=== PATIENT | female | born 1990 | race Caucasian/White ===

== ENCOUNTER 2017-05-27 14:30 | Inpatient (IN) | payer BC ==
[2017-05-27] MEDS ORDERED: DEXTROSE 5%-LACTATED RINGERS 1,000 ML IV ONE (14:50)
[2017-05-27] MEDS ORDERED: AMPICILLIN - 100 ML IVPB ONE (16:00)
[2017-05-27 16:21] VITALS: BMI 36.1
[2017-05-27 17:04] LABS: BASOPHIL 0.3 % (0-2.0); EOSINOPHIL 0.5 % (0-4.5); MCH 29.1 pg (25.7-33.7); MCHC 33.3 g/dl (32.0-36.0); MEAN CELL VOLUME 87.2 fl (80-96); MEAN PLT VOLUME 8.4 fl (7.5-11.1); NEUTROPHILS 66.9 % (42.8-82.8); PLATELET COUNT 233 K/MM3 (134-434); RDW 13.2 % (11.6-15.6); WHITE BLOOD COUNT 6.2 K/mm3 (4.0-10.0)
[2017-05-27 17:09] LABS: ANION GAP 7 (8-16); CALCIUM 8.7 mg/dL (8.5-10.1); CO2 26 mmol/L (21-32); CREATININE 0.5 mg/dL (0.55-1.02); GLUCOSE,RANDOM 78 mg/dL (74-106)
[2017-05-27 17:32] LABS: INR 1.05 (0.82-1.09); PROTHROMBIN TIME (PATIENT) 11.6 SEC (9.98-11.88)
[2017-05-27 17:35] LABS: ACTIVATED PTT 28.1 SECONDS (26.9-34.4)
[2017-05-27] MEDS: AMPICILLIN - 100 ML IVPB SCH (20:00)
[2017-05-27] MEDS ORDERED: AMPICILLIN - 100 ML IVPB SCH (22:30)
[2017-05-28] MEDS: OXYTOCIN 15 UNITS/ LR 250 ML 250 ML IVPB SCH (03:40)
[2017-05-28] MEDS: AMPICILLIN - 100 ML IVPB SCH ×5 (04:00→22:20)
[2017-05-28] MEDS: DEXTROSE 5%-LACTATED RINGERS 1,000 ML IV SCH (04:30)
[2017-05-28] MEDS ORDERED: BUTORPHANOL TARTRATE 1 MG/ML VIAL IVPUSH ONE (05:16)
[2017-05-28] MEDS ORDERED: PROMETHAZINE HCL 25 MG/1 ML VIAL IVPUSH ONE (05:16)
[2017-05-28] MEDS ORDERED: OXYTOCIN 15 UNITS/ LR 250 ML 250 ML IVPB SCH (05:30)
[2017-05-28] MEDS: FENTANYL/BUPIVACAINE/NS/PF - PCEA - 50 ML DISP.SYRIN EP SCH (10:15)
[2017-05-28] MEDS ORDERED: WITCH HAZEL 50% (TUCKS) 40 PAD/JAR PAD TP PRN (12:33)
[2017-05-28] MEDS ORDERED: METHYLERGONOVINE MALEATE 0.2 MG/1 ML AMP IM PRN (12:33)
[2017-05-28] MEDS ORDERED: BISACODYL 10 MG SUPP.RECT RC PRN (12:33)
[2017-05-28] MEDS ORDERED: BENZOCAINE 28 GM HEMORRHOIDAL OINTMENT TP PRN (12:33)
[2017-05-28] MEDS ORDERED: oxyCODONE HCL 5 MG TABLET PO PRN (12:33)
[2017-05-28] MEDS ORDERED: BENZOCAINE 20% 57 GM BOTTLE TP PRN (12:33)
--- NOTE | 2017-05-28 12:36 | HP ---
Past Medical History - Primary Care Physician PCP:: Luis E Steele (HP done 05/27/17) - Admission Chief Complaint: 38 weeks PROM History of Present Illness: 27 yo f 38.5 weeks, with srom 215 pm 03/27/17, clear fluid , no contraction , no fever, no bleeding History Source: Patient Limitations to Obtaining History: No Limitations - Past Medical History ...: 2 ...Para: 1 ...Term: 1 ...: 0 ...Spon : 0 ...Induced : 0 ...Multiple Gestation: 0 ...LMP: 08/29/16 ... Weeks Gestation by Dates: 38.5 ...EDC by Dates: 06/05/17 Additional OB History: one , no complication - Past Surgical History Hx Myomectomy: No Hx Transabdominal Cerclage: No - Smoking History Smoking history: Never smoked Have you smoked in the past 12 months: No - Alcohol/Substance Use Hx Alcohol Use: No - Social History Usual Living Arrangement: Yes: With Spouse History of Recent Travel: No Home Medications - Allergies Allergies/Adverse Reactions: Allergies Allergy/AdvReac Type Severity Reaction Status Date / Time No Known Drug Allergies Allergy Verified 05/27/17 15:36 - Home Medications Home Medications: Ambulatory Orders Vit No.130/Iron/FA [ Vitamins] 1 each PO DAILY 05/27/17 Review of Systems - Review of Systems Constitutional: reports: No Symptoms Eyes: reports: No Symptoms HENT: reports: No Symptoms Neck: reports: No Symptoms Cardiovascular: reports: No Symptoms Respiratory: reports: No Symptoms Gastrointestinal: reports: No Symptoms Genitourinary: reports: No Symptoms Breasts: reports: No Symptoms Reported Musculoskeletal: reports: No Symptoms Neurological: reports: No Symptoms Endocrine: reports: No Symptoms Hematology/Lymphatic: reports: No Symptoms Psychiatric: reports: No Symptoms Physical Exam - Maternity Vital Signs: Vital Signs Temperature 97.8 F 05/28/17 10:00 Pulse Rate 69 05/28/17 11:00 Respiratory Rate 18 05/28/17 11:00 Blood Pressure 89/45 05/28/17 11:00 O2 Sat by Pulse Oximetry (%) 100 05/28/17 11:00 Constitutional: Yes: Well Nourished, No Distress, Calm Eyes: Yes: WNL, Conjunctiva Clear, EOM Intact HENT: Yes: WNL, Atraumatic, Normocephalic Neck: Yes: WNL, Supple, Trachea Midline Cardiovascular: Yes: WNL, Regular Rate and Rhythm Breast(s): Yes: WNL - Abdominal Exam/OB Fundal Height: 38 Number of Fetuses: Single Presentation: Vertex Contractions: Yes Regularity: Irregular Intensity: Mild Monitor Mode: External Heart Rate Location: [facility] Category: I Accelerations: Uniform Decelerations: None - Vaginal Exam/OB Vaginal Bleediing: No Speculum Exam: Yes (gross leakage , clear fluid. no odor) Dilatation (cm): 1 cm Effacement (%): 70 Amniotic Membrane Status: Ruptured Nitrazine Test: Positive Amniotic Fluid: Yes: Clear Presentation: Vertex/Position Station: -3 - Physical Exam Musculoskeletal: Yes: WNL Edema: Yes Edema: LLE: Trace, RLE: Trace Deep Tendon Reflex Grade: Normal +2 - Labs Lab Results: CBC, BMP 05/27/17 15:30 05/27/17 15:30 Hemorrhage Risk Assessment - Risk Factors High Risk Factors: Yes: None Risk Score: 0 Risk Level: Low Risk Problem List - Problems (1) with 38 completed weeks gestation Code(s): Z3A.38 - 38 WEEKS GESTATION OF (2) Premature rupture of membranes, unspecified as to length of time between rupture and onset of labor, unspecified weeks of gestation Code(s): O42.90 - BEATRIZ ROM, 7TH0 BETW RUPT & ONST LABR, UNSP WEEKS OF GEST Qualifiers: PROM onset of labor timing: onset of labor within 24 hours of rupture PROM gestational age: full term Qualified Code(s): O42.02 - Full-term premature rupture of membranes, onset of labor within 24 hours of rupture Assessment/Plan admit, heart monitoring, expectant management, , pitocin if contraction not regular lateror if not in labor, risks discussed, GBS iv amp
--- NOTE | 2017-05-28 12:42 | PN ---
Progress Note (short form) - Note Progress Note: 5am. cx 2to 3 cm, irregular contraction ,fhr cat 1, Problem List - Problems (1) with 38 completed weeks gestation Code(s): Z3A.38 - 38 WEEKS GESTATION OF (2) Premature rupture of membranes, unspecified as to length of time between rupture and onset of labor, unspecified weeks of gestation Code(s): O42.90 - BEATRIZ ROM, 7TH0 BETW RUPT & ONST LABR, UNSP WEEKS OF GEST Qualifiers: PROM onset of labor timing: onset of labor within 24 hours of rupture PROM gestational age: full term Qualified Code(s): O42.02 - Full-term premature rupture of membranes, onset of labor within 24 hours of rupture
--- NOTE | 2017-05-28 12:44 | PN ---
Progress Note (short form) - Note Progress Note: 1045 am , cx 7 cm 80 vx -1 mr, has epidural, variable decel. good recovery , lt side, o2, if cont stop pitocin Problem List - Problems (1) with 38 completed weeks gestation Code(s): Z3A.38 - 38 WEEKS GESTATION OF (2) Premature rupture of membranes, unspecified as to length of time between rupture and onset of labor, unspecified weeks of gestation Code(s): O42.90 - BEATRIZ ROM, 7TH0 BETW RUPT & ONST LABR, UNSP WEEKS OF GEST Qualifiers: PROM onset of labor timing: onset of labor within 24 hours of rupture PROM gestational age: full term Qualified Code(s): O42.02 - Full-term premature rupture of membranes, onset of labor within 24 hours of rupture
[2017-05-28] MEDS ORDERED: D5W-LR W/ 20 UNITS OXYTOCIN 1,000 ML IV SCH (12:45)
[2017-05-28 12:50] LABS: ARTERIAL BLD GAS O2 SATURATION 12.2 % (90-98.9); ARTERIAL BLOOD GAS BASE EXCESS 0.8 meq/l (-2-2); ARTERIAL BLOOD GAS HCO3 30.6 meq/L (22-26)
[2017-05-28 12:56] LABS: ARTERIAL BLOOD GAS pH 7.24 (7.35-7.45)
[2017-05-28 12:57] LABS: ARTERIAL BLOOD GAS PO2 11.8 mmHg (80-100)
[2017-05-28 12:58] LABS: VENOUS BLOOD GAS HCO3 25.5 meq/L (19-25); VENOUS PH 7.36 (7.32-7.42)
[2017-05-28] MEDS: ACETAMINOPHEN 325 MG TABLET (FP) PO PRN (16:19)
[2017-05-28] MEDS: IBUPROFEN 600 MG TABLET (FP) PO PRN (16:20)
[2017-05-28] MEDS: FERROUS SO4 325 MG TABLET (FP) PO SCH (22:36)
[2017-05-29] MEDS: AMPICILLIN - 100 ML IVPB SCH ×4 (00:07→21:07)
[2017-05-29] MEDS: IBUPROFEN 600 MG TABLET (FP) PO PRN ×3 (08:25→21:50)
[2017-05-29] MEDS: ACETAMINOPHEN 325 MG TABLET (FP) PO PRN ×3 (08:25→21:50)
[2017-05-29] MEDS: FERROUS SO4 325 MG TABLET (FP) PO SCH ×2 (09:47→21:50)
[2017-05-29] MEDS: PRENATAL VITAMINS W/ FOLIC ACID TABLET (FP) PO SCH (09:47)
[2017-05-29 11:16] LABS: BASOPHIL 0.6 % (0-2.0); EOSINOPHIL 0.9 % (0-4.5); MCH 29.6 pg (25.7-33.7); MCHC 33.9 g/dl (32.0-36.0); MEAN CELL VOLUME 87.5 fl (80-96); MEAN PLT VOLUME 8.5 fl (7.5-11.1); NEUTROPHILS 69.2 % (42.8-82.8); PLATELET COUNT 246 K/MM3 (134-434); RDW 13.4 % (11.6-15.6)
--- NOTE | 2017-05-29 12:29 | PN ---
Progress Note (short form) - Note Progress Note: ppd1 doing well, no c/o voids ok CBC, BMP 05/29/17 10:52 05/27/17 15:30 Last Vital Signs Temp Pulse Resp BP Pulse Ox 97.6 F 64 18 112/79 100 05/29/17 06:00 05/29/17 06:00 05/29/17 06:00 05/29/17 06:00 05/28/17 13:15 abdomen soft, uterus firm ,non tender lochia mild , no calf tenderness plan ambualte, d/c home in am Problem List - Problems (1) with 38 completed weeks gestation Code(s): Z3A.38 - 38 WEEKS GESTATION OF (2) Premature rupture of membranes, unspecified as to length of time between rupture and onset of labor, unspecified weeks of gestation Code(s): O42.90 - BEATRIZ ROM, 7TH0 BETW RUPT & ONST LABR, UNSP WEEKS OF GEST Qualifiers: PROM onset of labor timing: onset of labor within 24 hours of rupture PROM gestational age: full term Qualified Code(s): O42.02 - Full-term premature rupture of membranes, onset of labor within 24 hours of rupture
[2017-05-29] MEDS: FENTANYL/BUPIVACAINE/NS/PF - PCEA - 50 ML DISP.SYRIN EP SCH (21:05)
[2017-05-29] MEDS: DEXTROSE 5%-LACTATED RINGERS 1,000 ML IV SCH (21:05)
[2017-05-29] MEDS: OXYTOCIN 15 UNITS/ LR 250 ML 250 ML IVPB SCH (21:08)
[2017-05-29] MEDS ORDERED: SENNOSIDES/DOCUSATE COMBO (SENNA PLUS) TABLET (UD) PO PRN (22:00)
--- NOTE | 2017-05-30 07:52 | DS ---
Physical Exam-MAINTENANCE INSPECTOR Vital Signs: Vital Signs Temperature 97.9 F 05/29/17 22:00 Pulse Rate 56 L 05/29/17 22:00 Respiratory Rate 18 05/29/17 22:00 Blood Pressure 131/55 05/29/17 22:00 O2 Sat by Pulse Oximetry (%) 100 05/28/17 13:15 Constitutional: Yes: Well Nourished, No Distress, Calm Eyes: Yes: WNL, Conjunctiva Clear, EOM Intact HENT: Yes: WNL, Atraumatic, Normocephalic Neck: Yes: WNL, Supple, Trachea Midline Cardiovascular: Yes: WNL, Regular Rate and Rhythm Respiratory: Yes: WNL, Regular, CTA Bilaterally Gastrointestinal: Yes: WNL ...Rectal Exam: Yes: WNL Renal/: Yes: WNL ....Post : Yes: Uterus firm, Uterus non-tender, Slight lochia rubra Breast(s): Yes: WNL Musculoskeletal: Yes: WNL Extremities: Yes: WNL Edema: LLE: Trace, RLE: Trace Integumentary: Yes: WNL Neurological: Yes: WNL, Alert, Oriented ...Motor Strength: WNL Psychiatric: Yes: WNL, Alert, Oriented Labs: CBC, BMP 05/29/17 10:52 05/27/17 15:30 Delivery - Delivery Vaginal Delivery: Spontaneous (no complication) Type of Anesthesia: Epidural Episiotomy/Laceration: 1st degree EBL (cc): 300 Delivery, Single - Stages of Labor Date 1st Stage Initiatied: 05/28/17 Time 1st Stage Initiated: 04:40 Date 2nd Stage Initiated: 05/28/17 Time 2nd Stage Initiated: 12:00 Date of Delivery: 05/28/17 Time of Delivery: 12:13 Time Placenta Delivered: 12:17 Placenta: Yes: Spontaneous - Condition of Infant 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 Present: [place]: Sandor Elliott Infant Gender: Female Weight: 6 lb 11 oz Position: OA Total Hours ROM (Hrs/Mins): 22hr/ 2mins - 1 Minute Total Score: 6 5 Minutes Total Score: 8 - Faber Feeding Plan Initial Plan: Exclusive throughout hospitalization Discharge Summary Reason For Visit: LABOR Current Active Problems with 38 completed weeks gestation (Acute) Premature rupture of membranes, unspecified as to length of time between rupture and onset of labor, unspecified weeks of gestation (Acute) Procedures: Principal: Hospital Course: uneventful Condition: Good - Instructions Diet, Activity, Other Instructions: regular diet, , follow up office 4 weeks Referrals: Luis E Steele MD [Staff Physician] - Disposition: HOME - Home Medications Comprehensive Discharge Medication List: Ambulatory Orders Vit No.130/Iron/FA [ Vitamins] 1 each PO DAILY 05/27/17 Ibuprofen [Motrin -] 600 mg PO QID #28 tablet 05/29/17
[2017-05-30 08:08] VITALS: BP 107/64; PULSE 61; TEMP 98.7
[2017-05-30] MEDS: FERROUS SO4 325 MG TABLET (FP) PO SCH (09:17)
[2017-05-30] MEDS: PRENATAL VITAMINS W/ FOLIC ACID TABLET (FP) PO SCH (09:17)
== END 2017-05-30 11:30 | disposition home or self-care (01) | DRG 775 ==
LOC: JDEL 14:30 → JLDR 14:45 → J3W 05-28 14:30
PROVIDERS: ADMIT Obstetrics & Gynecology; ATTEND Obstetrics & Gynecology
PROC: 10E0XZZ Delivery of Products of Conception, External Approach (ICD-10-PCS; principal; 2017-05-28)
PROC: 0W8NXZZ Division of Female Perineum, External Approach (ICD-10-PCS; 2017-05-28)
PROC: 0HQ9XZZ Repair Perineum Skin, External Approach (ICD-10-PCS; 2017-05-28)
DX: O70.0 First degree perineal laceration during delivery (principal); O42.92 Full-term premature rupture of membranes, unspecified as to length of time between rupture and onset of labor; Z3A.38 38 weeks gestation of pregnancy; Z37.0 Single live birth
CPT/HCPCS: 36415; 36600; 59409; 80048; 82803; 85025; 85610; 85730; 86593; 86850; 86900; 86901